=== PATIENT | female | born 1970 | race Caucasian/White ===

== ENCOUNTER → 2017-09-07 | Outpatient (CLI) | payer SELFPAY ==
[~2017-09-07] MED LIST: DULO60CA6 PO; EST.625T PO; HYDR-3583 PO; TPR25T PO; [UNRECOGNIZED DRUG - OTHER] PO
--- NOTE | 2017-09-07 10:33 | Diagnostic Imaging Report ---
INDICATION: Thoracic pain. FINDINGS: Thoracic spinal curvature and alignment are unremarkable. There is no evidence of focal disc herniation or significant stenosis. Thoracic spinal cord appears intrinsically normal. There is mild degenerative facet arthropathy in the lower thoracic spine without significant neural foraminal stenosis. Thoracic spinal cord appears intrinsically normal. No paraspinous abnormalities detected. IMPRESSION: Lower thoracic degenerative facet arthropathy without evidence of stenosis or acute abnormality. Dictated by: Dictated on workstation # [id number]
== END ==
LOC: RAD 09:34
PROVIDERS: ATTEND Nurse Practitioner Community Health
DX: M46.84 Other specified inflammatory spondylopathies, thoracic region (principal); M54.14 Radiculopathy, thoracic region
CPT/HCPCS: 72146

== ENCOUNTER → 2020-07-16 | Outpatient (CLI) | payer OTHER | LOC: LABNPT 06:15 | PROVIDERS: ATTEND Orthopaedic Surgery Orthopaedic Surgery of the Spine | DX: Z01.812 Encounter for preprocedural laboratory examination (principal); Z20.822 Contact with and (suspected) exposure to COVID-19 | CPT/HCPCS: 87635 ==